=== PATIENT | female | born 1985 | race Caucasian/White ===

== ENCOUNTER 2020-01-03 09:41 | Outpatient (CLI) | payer SELFPAY ==
--- NOTE | 2020-01-03 10:15 | US_ITS ---
WS: [id number] ULTRASOUND ABDOMEN LIMITED CLINICAL INFORMATION: ABDOMINAL PAIN COMPARISON: None. FINDINGS: Technically difficult examination due to body habitus. Liver Size: Normal. Craniocaudal length: 16.0 cm. Echogenicity: Fatty infiltration Surface nodularity: None. Mass (size and location): None. Bile ducts Intrahepatic ducts: Normal. Common bile duct diameter: 0.4 cm. Gallbladder Cholelithiasis and sludge Gallstones: Present Gallbladder sludge: Present Gallbladder wall thickening: None. Pericholecystic fluid: None. Sonographic Lucia sign: Absent. Pancreas Normal as visualized. Right kidney: Normal. Hydronephrosis: None. Size: 11.7 cm x 5.2 cm x 4.4 cm. Abdominal aorta and IVC Visualized portions are normal. Ascites: None. US/US gall bladder 84600 IMPRESSION: 1. Liver is normal in size with mild fatty infiltration. 2. Cholelithiasis with sludge in the gallbladder. Normal common bile duct. No gallbladder wall thickening. 3. No hydronephrosis in right kidney.
== END 2020-01-03 09:42 | disposition home or self-care (01) ==
LOC: RAD 09:44
PROVIDERS: PCP Nurse Practitioner Family; Visit Provider Surgery
DX: R10.9 Unspecified abdominal pain (principal); K80.20 Calculus of gallbladder without cholecystitis without obstruction
CPT/HCPCS: 76705

== ENCOUNTER 2020-03-05 06:47 | Day surgery (SDC) | payer SELFPAY ==
[2020-03-02 15:55] VITALS: BMI 38.6
[2020-03-05] VITALS (9 sets, daily range): BP systolic 124–145; BP diastolic 56–86; PULSE 62–114; RESP 17–26; TEMP 36.2–36.8; O2SAT 90–95; BMI 38.6
[2020-03-05 07:27] LABS: OR HCG Qualitative Urine Negative (Negative)
[2020-03-05] MEDS: sodium chloride 0.9% 1,000 ML 30 ML IV (07:30)
--- NOTE | 2020-03-05 07:45 | P.ANESASSM_ITS ---
Pre-Anesthetic Assessment Pre-Anesthetic Assessment: Height/Weight: Height 1.63 m Weight 102.058 kg Preop Diagnosis: Cholelithiasis Proposed Procedure: Operation Date: 03/05/20 08:25 Proposed Procedures p Laparoscopic Cholecystectomy 92920 K80.20(Not Applicable) - Aiden Boateng MD Familial anesthetic complications: None Was Beta Misbah taken within 24 hours: N/A Last intake: NPO Social: Social History: Tobacco and No alcohol Exam: Pre-Anes Outpt Exam: alert, oriented x 3, clear to auscultation bilaterally and regular rate & rhythm Airway: Cervical ROM: WNL MP: 2 Dentition: Full Metabolic: Metabolic: Morbid obesity Anesthetic Plan: ASA status: 2 Anesthesia: General Risk of > 500 ml blood loss (7ml/kg in children): No PFSH Anesthesia PFSH: Medical History Cholelithiasis FERMIN (generalized anxiety disorder) Surgical History H/O hand surgery right hand History of dilatation and curettage History of tonsillectomy and adenoidectomy Family History Denies family history of Anesthesia complication Bleeding disorder Social History Smoking and tobacco status: current every day smoker cigarettes Packs smoked per day: 0.5 Second hand smoke exposure: No Alcohol intake: never Adopted: No Caregiver/support person: Yes Lives independently: Yes Household members: spouse and family Housing: House Marital status: service: No Current occupational status: disabled Current occupational exposures/hazards: No Pets and animals: No History of recent travel: No Sexually active: Yes Current gender identity: Female Jeannette/Hoahaoism: Restorationism Special jeannette needs: No Data Anesthesia Other Labs: Laboratory Results - last 48 hr 03/05/20 07:22 Urine HCG, Qual Negative Cardiac Studies: No Data to Display
[2020-03-05] MEDS: ciprofloxacin 400 MG/200 ML PREMIX 200 MG IV (09:10)
--- NOTE | 2020-03-05 09:22 | W.PM.OPSUD ---
Surgery/Procedure H&P Update DATE OF PROCEDURE: March 05, 2020 DATE H&P PERFORMED: 02/27/20 H&P UPDATE INFORMATION: I have reviewed H&P completed within last 30 days, I have examined patient prior to procedure and No changes to prior documentation PREOP DIAGNOSIS: Cholelithiasis PLANNED PROCEDURE: Operation Date: 03/05/20 08:25 Proposed Procedures p Laparoscopic Cholecystectomy 42467 K80.20(Not Applicable) - Aiden Boateng MD
--- NOTE | 2020-03-05 10:13 | P.OP_ITS ---
Operative Report Date of procedure: March 05, 2020 Pre-op Diagnosis: Cholelithiasis Post-op diagnosis: same Procedure Done: Laparoscopic cholecystectomy Pathology: Gallbladder Surgeon: Aiden Boateng Anesthesia: General Condition: stable Disposition: PACU Procedure: The patient was taken to the operating room and was intubated under general anesthesia. After the antibiotic had been administered, the abdomen was prepped and draped in a sterile manner. Using a #15 blade, a 1 centimeter infraumbilical curvilinear incision was made and using an open Nick technique the peritoneal cavity was entered. A 10 millimeter port was placed and 15 mi llimeters of pneumoperitoneum was created. A 10 millimeter, 30 degrees scope was then introduced. Three 5 millimeter ports were placed in the epigastric, midclavicular and the anterior axillary line two fingerbreadths below the costal margin on the right side under the direct visualization. Ratcheted forceps were introduced into the lateral most port and was used to retract the fundus of the gallbladder cephalad and using forceps the infundibulum of the gallbladder was retracted laterally. Using L-hook cautery the peritoneum overlying the Calot's triangle was opened medially and laterally until the cystic duct and the cystic artery were skeletonized. Dissection was carried along the body of the gallbladder and after ensuring critical view of safety, 4 clips applied on the cystic duct and 3 clips applied on the cystic artery and cut leaving, 3 clips on the remaining portion of the duct and 2 clips on the remaining portion of the artery. The rest of the gallbladder was dissected off the liver using L-hook cautery. There was no bleeding or bile leaking noted from the gallbladder fossa and the clips appeared to be in place. An EndoCatch bag was introduced to remove the gallbladder. All the ports were removed under direct visualization and there was no bleeding noted from the port sites. The fascia of the umbilicus was closed using [id number] 0 Vicryl sutures and the subcutaneous tissue was approximated using 3-0 Vicryl sutures. The skin at all four ports were closed using 4-0 Monocryl and Dermabond. A total of 10 millimeters of 0.5% Marcaine was infiltrated around the port sites. The patient was stable throughout the procedure.
--- NOTE | 2020-03-05 10:27 | SUR.PHASEI ---
1025 PATIENT TO PACU FROM OR. RR EVEE AND UNLABORED. PLACED ON SIMPLE MASK AT 8L, SPO2 91%. 4 INCISIONS TO ABDOMEN, CDI.
--- NOTE | 2020-03-05 10:29 | SUR.PHASEI ---
1027 ORAL AIRWAY REMOVED. SPO2 92% ON SIMPLE MASK AT 8L.
--- NOTE | 2020-03-05 10:51 | ANE.PACU2 ---
Inpatient post-anesthesia follow up: Airway intact: Yes Vital signs: Temperature 97.2 F Pulse Rate 80 Respiratory Rate 22 Blood Pressure 132/72 Pulse Oximetry 94 Oxygen Delivery Me thod Nasal Cannula Oxygen Flow Rate 3 Fraction of Inspir ed Oxygen Hydration adequate: Yes Nausea and vomiting: No Pain level: 3 Mental status: Baseline
--- NOTE | 2020-03-05 10:54 | SUR.PHASEI ---
1050 PATIENT TO OPS. NO DISTRESS. RATES PAIN 6/10, RESTING COMFORTABLY ON GURNEY. TOLERATING ICE CHIPS.
[2020-03-05] MEDS: HYDROcodone-acetaminophen 5-325 mg Tablet 1 TAB PO (11:14)
== END 2020-03-05 12:06 | disposition home or self-care (01) ==
PROVIDERS: Anesthesiology; PCP Nurse Practitioner Family; Visit Provider Surgery
PROC: 0FT44ZZ Resection of Gallbladder, Percutaneous Endoscopic Approach (ICD-10-PCS; CPT 47562; principal; 2020-03-05 08:25)
DX: K80.10 Calculus of gallbladder with chronic cholecystitis without obstruction (principal); E66.01 Morbid (severe) obesity due to excess calories; F41.1 Generalized anxiety disorder; F17.210 Nicotine dependence, cigarettes, uncomplicated
CPT/HCPCS: 47562; 12345; 81025; 84703; 88304; 96365; J0131; J0690; J0744; J1885; J2405; J2704; J2710; J3010; J3490; J7030

== ENCOUNTER → 2020-11-21 10:43 | Outpatient (BNVA) | payer SELFPAY | PROVIDERS: PCP Nurse Practitioner Family; Visit Provider Nurse Practitioner Family | DX: J30.89 Other allergic rhinitis (principal); Z79.899 Other long term (current) drug therapy; L74.9 Eccrine sweat disorder, unspecified; Z13.6 Encounter for screening for cardiovascular disorders; N95.1 Menopausal and female climacteric states; E55.9 Vitamin D deficiency, unspecified | CPT/HCPCS: 80053; 80061; 82306; 82670; 83001; 83036; 84439; 84443; 84550; 85007; 85027 ==

== ENCOUNTER → 2020-12-11 09:14 | Outpatient (BNVA) | payer SELFPAY | PROVIDERS: PCP Nurse Practitioner Family; Visit Provider Nurse Practitioner Family | DX: D64.9 Anemia, unspecified (principal); R09.81 Nasal congestion | CPT/HCPCS: 82607; 82728; 82746; 83550 ==

== ENCOUNTER → 2020-12-13 14:02 | Outpatient (BNVA) | payer SELFPAY | PROVIDERS: PCP Nurse Practitioner Family; Visit Provider Nurse Practitioner Family | DX: D64.9 Anemia, unspecified (principal); F41.9 Anxiety disorder, unspecified; F32.9 Major depressive disorder, single episode, unspecified | CPT/HCPCS: 83921 ==

== ENCOUNTER → 2021-05-22 10:55 | Outpatient (BNVA) | payer SELFPAY | PROVIDERS: PCP Nurse Practitioner Family; Visit Provider Nurse Practitioner Family | DX: R05.8 Other specified cough (principal); R39.9 Unspecified symptoms and signs involving the genitourinary system | CPT/HCPCS: 81003 ==

== ENCOUNTER 2021-06-03 13:25 | Outpatient (CLI) | payer MEDICAID, SELFPAY ==
--- NOTE | 2021-06-03 13:30 | XRR_ITS ---
PROCEDURE INFORMATION: Exam: XR Right Ribs Exam date and time: 06/03/2021 1:30 PM Age: 35 years old Clinical indication: Condition or disease; Other: Pleurodynia; Additional info: R07.81 - pleurodynia TECHNIQUE: Imaging protocol: XR Right ribs. Views: 2 views. COMPARISON: CR Chest 2 views* [id number] 04/13/2016 1:38 AM FINDINGS: Bones/joints: Normal. Organs: Cholecystectomy clips project over the right upper quadrant. Soft tissues: Normal. XR/XR ribs RT 2V* [id number] IMPRESSION: No acute injury. Radiation Dose CTDIVOL = (mGy): DLP = (mGy-cm)
== END 2021-06-03 13:26 | disposition home or self-care (01) ==
LOC: RAD 13:28
PROVIDERS: PCP Nurse Practitioner Family; Visit Provider Family Medicine
DX: R07.81 Pleurodynia (principal)
CPT/HCPCS: 71100

== ENCOUNTER 2021-09-05 14:59 | Outpatient (CLI) | payer MEDICAID, SELFPAY ==
--- NOTE | 2021-09-05 15:09 | XR_ITS ---
WS: [id number] Right knee, 3 views, 09/05/2021 Clinical Data: M25.569 - Pain in unspecified knee Comparison: None. Findings: No fractures or dislocations are seen. The joint spaces are normal. The patella is intact. The soft t issues are unremarkable. XR/XR knee RT 3V* [id number] Impression: Negative right knee. Kellgren-Coleman Classification:
== END 2021-09-05 15:00 | disposition home or self-care (01) ==
LOC: RAD 15:03
PROVIDERS: PCP Family Medicine; Visit Provider Family Medicine
DX: M25.561 Pain in right knee (principal)
CPT/HCPCS: 73562

== ENCOUNTER → 2021-09-18 14:18 | Outpatient (BNVA) | payer MEDICAID, SELFPAY | PROVIDERS: PCP Family Medicine; Visit Provider Family Medicine | DX: R35.0 Frequency of micturition (principal) | CPT/HCPCS: 81000 ==

== ENCOUNTER → 2021-09-24 14:23 | Outpatient (BNVA) | payer MEDICAID, SELFPAY | PROVIDERS: PCP Family Medicine; Visit Provider Nurse Practitioner Family | DX: N32.81 Overactive bladder (principal); J01.90 Acute sinusitis, unspecified; B96.89 Other specified bacterial agents as the cause of diseases classified elsewhere; I10 Essential (primary) hypertension; D64.9 Anemia, unspecified; E55.9 Vitamin D deficiency, unspecified; Z13.6 Encounter for screening for cardiovascular disorders; Z79.899 Other long term (current) drug therapy | CPT/HCPCS: 80053; 80061; 81003; 82306; 82728; 83036; 83550; 84443; 85025 ==

== ENCOUNTER → 2022-01-15 10:04 | Outpatient (BNVA) | payer MEDICAID, SELFPAY | PROVIDERS: PCP Family Medicine; Referring Provider Nurse Practitioner; Visit Provider Orthopaedic Surgery | DX: M25.561 Pain in right knee (principal) | CPT/HCPCS: 99203 ==

== ENCOUNTER → 2022-01-29 14:15 | Outpatient (BNVA) | payer MEDICAID, SELFPAY | PROVIDERS: PCP Family Medicine; Visit Provider Nurse Practitioner | DX: D22.9 Melanocytic nevi, unspecified (principal); H16.139 Photokeratitis, unspecified eye | CPT/HCPCS: 88304 ==

== ENCOUNTER → 2022-03-03 14:19 | Outpatient (BNVA) | payer MEDICAID, SELFPAY | PROVIDERS: PCP Family Medicine; Visit Provider Nurse Practitioner | DX: R52 Pain, unspecified (principal); U07.1 COVID-19 | CPT/HCPCS: 87426 ==

== ENCOUNTER 2022-04-17 07:36 | Day surgery (SDC) | payer MEDICAID, SELFPAY ==
[2022-04-16 12:23] VITALS: BMI 56.6
[2022-04-17 08:22] VITALS: BP 164/98; PULSE 64; RESP 18; TEMP 36.6; O2SAT 94
[2022-04-17] MEDS: sodium chloride 0.9% 1,000 ML 30 ML IV (08:34)
--- NOTE | 2022-04-17 09:02 | P.ANESASSM_ITS ---
Pre-Anesthetic Assessment Height/Weight: Height 1.63 m Weight 149.685 kg Temp Pulse Resp BP Pulse Ox O2 Del Method 97.8 F 64 18 164/98 94 04/17/22 08:22 04/17/22 08:22 04/17/22 08:22 04/17/22 08:22 04/17/22 08:22 04/17/22 08:22 Preop Diagnosis: Carpal tunnel syndrome left Operation Date: 04/17/22 09:40 Proposed Procedures p Carpal Tunnel Release Of Left Hand [id number](Left) - Demarcus Scott MD Familial anesthetic complications: None Was Beta Misbah taken within 24 hours: N/A Was Clonidine taken within 24 hours: N/A Last intake: > 8hrs Social Tobacco and No alcohol Exam alert, oriented x 3, clear to auscultation bilaterally and regular rate & rhythm Airway Mallampati: Class IV Dentition: full Pulmonary None reported CV/HEM Hypertension GI Gastroesophageal Reflux Disease Metabolic Morbid Obesity Anesthetic Plan ASA status: 3 Anesthesia: General Risk of > 500 ml blood loss (7ml/kg in children): No Medications/Allergies Home Medications Medication Instructions Recorded Confirmed Last Taken Type ondansetron HCl 4 mg tablet 4 mg PO Q8H PRN nausea and 07/15/21 04/16/22 Unknown Rx (Zofran) vomiting 5 days #15 tabs gabapentin 300 mg capsule 300 mg PO .nightly 90 days #90 caps 12/16/21 04/17/22 04/16/22 Rx cetirizine 10 mg capsule (Zyrtec) 10 mg PO DAILY PRN allergy 03/05/22 04/17/22 04/16/22 Rx symptoms 90 days #90 caps cholecalciferol (vitamin D3) 25 25 mcg PO DAILY #30 caps 03/05/22 04/17/22 04/16/22 Rx mcg (1,000 unit) capsule duloxetine 60 mg capsule,delayed 60 mg PO DAILY 90 days #90 caps 03/05/22 04/17/22 04/16/22 Rx release meloxicam 15 mg tablet 15 mg PO DAILY 90 days #90 tabs 03/05/22 04/17/22 04/16/22 Rx mirabegron 25 mg tablet,extended 25 mg PO DAILY 30 days #30 tabs 03/05/22 04/17/22 04/16/22 Rx release 24 hr (Myrbetriq) omeprazole 40 mg capsule,delayed 40 mg PO DAILY #30 caps 04/04/22 04/17/22 04/16/22 Rx release + Iron 1 tab PO DAILY 04/16/22 04/17/22 04/16/22 History fluticasone propionate 50 2 spray intranasal DAILY PRN 04/16/22 04/16/22 Unknown History mcg/actuation nasal Allergy Symptoms spray,suspension losartan 25 mg tablet 25 mg PO DAILY 04/16/22 04/17/22 04/16/22 History montelukast 10 mg tablet 10 mg PO DAILY 04/16/22 04/17/22 04/16/22 History nystatin 100,000 unit/gram topical 1 applic topical BID #30 grams 04/16/22 Unknown Rx cream triamcinolone acetonide 0.1 % 1 applic topical BID 04/16/22 04/16/22 Unknown History topical cream (Triderm) Allergies Allergy/AdvReac Type Severity Reaction Status Date / Time doxycycline Allergy Severe ADR-Headach Verified 04/16/22 12:18 e escitalopram [From Lexapro] Allergy Severe ADR-Fatigue Verified 04/16/22 12:18 d guaifenesin [From Mucinex D] Allergy Severe ADR-Headach Verified 04/16/22 12:18 e loratadine [From Claritin-D] Allergy Severe ALGY-Bliste Verified 04/16/22 12:18 r Penicillins Allergy Severe ALGY-Hives Verified 04/16/22 12:18 pseudoephedrine Allergy Severe ALGY-Bliste Verified 04/16/22 12:18 [From Claritin-D] r Sulfa (Sulfonamide Allergy Severe ALGY-Hives Verified 04/16/22 12:18 Antibiotics) lisinopril Allergy Intermediate cough Verified 04/16/22 12:18 oxybutynin AdvReac heart Verified 04/16/22 12:18 palapations topiramate [From Topamax] AdvReac high bp Verified 04/16/22 12:18 Current Medications Generic Name Dose Route Start Last Admin Trade Name Freq PRN Reason Stop Dose Admin Sodium Chloride 1,000 mls @ 30 mls/hr 04/17/22 08:30 04/17/22 08:34 Sodium Chloride 0.9% IV 04/18/22 08:29 30 mls/hr .Q24H MACIEJ Administration PFSH Anesthesia Medical History Acute bacterial sinusitis Acute bacterial sinusitis Acute otitis media, bilateral Anemia Anxiety and depression Bilateral otitis externa Bilateral otitis media Cholelithiasis Chronic sinusitis Cough Elevated blood pressure reading Environmental and seasonal allergies Essential hypertension FERMIN (generalized anxiety disorder) Hypertension screen Medication management Medication management Menopausal symptom Migraine headache Nasal congestion Nausea Overactive bladder Pharyngitis Sinus congestion Sweating abnormality Vitamin D deficiency Yeast dermatitis Surgical History H/O hand surgery right hand History of dilatation and curettage History of tonsillectomy and adenoidectomy Status post laparoscopic cholecystectomy (03/05/20) Family History Denies family history of Anesthesia complication Bleeding disorder Social History Smoking and tobacco status: never smoked Second hand smoke exposure: No Alcohol intake: never Adopted: No Caregiver/support person: Yes Lives independently: Yes Household members: spouse and family Housing: House Marital status: service: No Current occupational status: disabled Current occupational exposures/hazards: No Pets and animals: No History of recent travel: No Sexually active: Yes Current gender identity: Female Jeannette/Taoism: Rastafarian Special jeannette needs: No Data Anesthesia Cardiac Studies: No Data to Display
[2022-04-17 09:12] LABS: OR HCG Qualitative Urine Negative (Negative)
--- NOTE | 2022-04-17 10:00 | W.PM.OPSUD ---
Surgery/Procedure H&P Update DATE OF PROCEDURE: April 17, 2022 DATE H&P PERFORMED: 04/11/22 H&P UPDATE INFORMATION: I have reviewed H&P completed within last 30 days PREOP DIAGNOSIS: Carpal tunnel syndrome left PLANNED PROCEDURE: Operation Date: 04/17/22 09:40 Proposed Procedures p Carpal Tunnel Release Of Left Hand [id number](Left) - Demarcus Scott MD
[2022-04-17] MEDS: ceFAZolin 2,000 MG in sodium chloride 0.9% (plus) 50 ML 100 MG IV (10:11)
--- NOTE | 2022-04-17 10:46 | P.OP_ITS ---
Operative Report Date of procedure: April 17, 2022 Pre-op diagnosis: Preop Diagnosis Carpal tunnel syndrome left Post-op diagnosis: same Post-op diagnosis: Same Procedure done: Left carpal tunnel release Pathology: none sent Surgeon: Demarcus Scott Anesthesia: MAC Estimated blood loss (mL): 2 Tourniquet time (min): 5 Findings: No masses or space-occupying lesions were seen within the carpal tunnel Condition: stable Disposition: PACU Procedure: Patient was taken to the operating room and anesthesia provided by the anesthesia service. She was prepped and draped with the arm exposed. A timeout was performed. A 3 cm long incision was made in line with the fourth ray from the distal edge of the carpal tunnel extending proximally. The subcutaneous fat and palmar fascia was divided with a scalpel blade. Under loupe magnification the ulnar neurovascular bundle was identified distally. A hemostat could be passed under the transverse carpal ligament allowing the distal 25% to be divided. A slotted guide was then passed beneath the transverse carpal ligament and the middle 50% divided. Blunt scissors were then passed over the guide freeing the proximal ligament. The tourniquet was deflated. Hemostasis provided with electrocautery. Wound edges were infiltrated with 10 cc of a half percent Marcaine solution. Skin edges were reapproximated with 3-0 Prolene[address] S terile dressings were applied. The patient was taken to the recovery room in stable condition
[2022-04-17 10:49] VITALS: BP 142/86; PULSE 86; RESP 12; TEMP 36.4; O2SAT 96
[2022-04-17 10:55] VITALS: BP 164/74; PULSE 69; RESP 14; O2SAT 95
[2022-04-17 11:02] VITALS: BP 161/79; PULSE 64; RESP 14; TEMP 36.5; O2SAT 94
[2022-04-17 11:07] VITALS: BP 138/79; PULSE 64; RESP 16; TEMP 36.6; O2SAT 95
--- NOTE | 2022-04-17 11:12 | SUR.PHASEII ---
good ROM and sensation of fingers left hand.
[2022-04-17 11:55] VITALS: BP 143/69; PULSE 72; RESP 16; TEMP 36.6; O2SAT 97
[2022-04-17] MEDS: HYDROcodone-acetaminophen 5-325 mg Tablet 1 TAB PO (11:57)
--- NOTE | 2022-04-17 14:06 | ANE.PACU2 ---
Inpatient post-anesthesia follow up: Airway intact: Yes Vital signs: Temperature 97.9 F Pulse Rate 72 Respiratory Rate 16 Blood Pressure 143/69 Pulse Oximetry 97 Oxygen Delivery Me thod Room Air Oxygen Flow Rate Fraction of Inspir ed Oxygen Hydration adequate: Yes Nausea and vomiting: No Pain level: 1 Mental status: Baseline
== END 2022-04-17 12:05 | disposition home or self-care (01) ==
PROVIDERS: Anesthesiology; PCP Family Medicine; Visit Provider Orthopaedic Surgery
PROC: (CPT 64721; principal; 2022-04-17 09:30)
DX: G56.02 Carpal tunnel syndrome, left upper limb (principal); I10 Essential (primary) hypertension; K21.9 Gastro-esophageal reflux disease without esophagitis; E66.01 Morbid (severe) obesity due to excess calories; Z68.43 Body mass index [BMI] 50.0-59.9, adult
CPT/HCPCS: 64721; 81025; 84703; J2250; J2704; J3010; J3490; J7030

== ENCOUNTER 2022-04-22 10:43 | Outpatient (CLI) | payer MEDICAID, SELFPAY | END 2022-04-22 10:44 | disposition home or self-care (01) | LOC: SPT 10:44 | PROVIDERS: PCP Family Medicine; Visit Provider Nurse Practitioner Family | DX: Z46.89 Encounter for fitting and adjustment of other specified devices (principal); G56.02 Carpal tunnel syndrome, left upper limb; Z98.890 Other specified postprocedural states | CPT/HCPCS: 97760; L3908 ==

== ENCOUNTER → 2022-05-06 10:35 | Outpatient (BNVA) | payer MEDICAID, SELFPAY | PROVIDERS: PCP Family Medicine; Visit Provider Nurse Practitioner Family | DX: M25.561 Pain in right knee (principal); G89.29 Other chronic pain; E66.9 Obesity, unspecified; Z68.44 Body mass index [BMI] 60.0-69.9, adult | CPT/HCPCS: 73560; 73565 ==

== ENCOUNTER → 2022-05-14 08:37 | Outpatient (BNVA) | payer MEDICAID, SELFPAY | PROVIDERS: PCP Family Medicine; Visit Provider Nurse Practitioner | DX: R23.2 Flushing (principal); T50.905A Adverse effect of unspecified drugs, medicaments and biological substances, initial encounter | CPT/HCPCS: 82672; 83001; 84443 ==

== ENCOUNTER 2022-08-20 14:27 | Outpatient (CLI) | payer MEDICAID, SELFPAY ==
--- NOTE | 2022-08-20 14:30 | MR_ITS ---
WS: [id number] MRI RIGHT KNEE NONCONTRAST TECHNIQUE: Axial PD, coronal PD fat sat, coronal PD, sagittal PD, and sagittal PD fat-sat images obta ined. CLINICAL INFORMATION: pain COMPARISON: MRI 2009 FINDINGS: Distal quadriceps and patella tendons are intact. ACL and PCL appear intact. Mucoid degeneration of t he ACL. Small suprapatellar effusion. Moderate chondromalacia patella with chondral fissuring. No sub chondral edema. Normal medial and lateral patellar retinaculum. Small amount of prepatellar soft tiss ue edema. Medial and lateral collateral ligaments are intact. Normal popliteus. Advanced joint space narrowing lateral joint compartment advanced for patient this age. Peripheral ex trusion of the lateral meniscus. Horizontal tear involving the lateral meniscus extending to the jessica pheral articular surface is new or progressed compared to previous. Associated meniscal cysts at the periphery. Additional small meniscal cysts at the intercondylar notch. Peripheral extrusion of the la teral meniscus. MR/MR knee RT wo con* [id number] IMPRESSION: 1. ACL and PCL are intact. Mucoid degeneration of the ACL appears new from pre vious. 2. Tear involving the anterior horn lateral meniscus extending to the articula r surface at the periphery. Associated para meniscal cysts. Chronic thinning of the lateral meniscus. This is progressed compared to previous. Thinning of the medial meniscus which appears intact. 3. Grade II chondromalacia involving the lateral joint compartment. No subchon dral edema. 4. Moderate chondromalacia patella with chondral fissuring. Small joint effusi on. Outbridge grading: grade III: partial-thickness cartilage loss with focal ulcer ation
== END 2022-08-20 14:28 | disposition home or self-care (01) ==
PROVIDERS: PCP Family Medicine; Visit Provider Nurse Practitioner Family
DX: M22.41 Chondromalacia patellae, right knee (principal); M25.461 Effusion, right knee
CPT/HCPCS: 73721

== ENCOUNTER 2022-09-25 08:55 | Day surgery (SDC) | payer MEDICAID, SELFPAY ==
[2022-09-16 14:38] VITALS: BMI 55.3
--- NOTE | 2022-09-24 09:48 | PC.NURSE ---
pre-op was done last week, surgery rescheduled due to pt still taking phentermine. No chages on patients medications or history. pt verbalized understanding of pre-op instructions and has no further questions.
[2022-09-25] VITALS (8 sets, daily range): BP systolic 112–167; BP diastolic 72–110; PULSE 78–110; RESP 13–18; TEMP 36.1–36.2; O2SAT 91–96
[2022-09-25] MEDS: sodium chloride 0.9% 1,000 ML 30 ML IV (09:23)
--- NOTE | 2022-09-25 09:24 | ANES.PREANE2 ---
Pre-Anesthetic Assessment Height/Weight: Height 1.63 m Weight 146.057 kg Temp Pulse Resp BP Pulse Ox O2 Del Method 97.2 F L 78 16 163/85 95 09/25/22 09:10 09/25/22 09:10 09/25/22 09:10 09/25/22 09:10 09/25/22 09:10 09/25/22 09:18 Preop Diagnosis: Right lateral meniscal tear, chondromalacia knee Operation Date: 09/25/22 10:25 Proposed Procedures p right knee arthroscopy with lateral meniscectomy/ 39984,S83.207A(Right) - Demarcus Scott MD s Meniscectomy(Right) - Demarcus Scott MD Familial anesthetic complications: none Was Beta Misbah taken within 24 hours: N/A Was Clonidine taken within 24 hours: N/A Last intake: Intake Last Liquid Date 09/24/22 Last Liquid Time 23:30 Last Solid Date 09/24/22 Last Solid Time 20:00 Last Intake: 23:00 Social No alcohol and No tobacco Exam alert, oriented x 3, clear to auscultation bilaterally and regular rate & rhythm Airway Submandibular: within normal limits Cervical ROM: within normal limits Mallampati: Class II Dentition: full (decayed front upper) Pulmonary None reported CV/HEM Hypertension None reported Hepatic None reported GI Gastroesophageal Reflux Disease (controlled with meds) Metabolic Morbid Obesity [facility] [place] None reported Neuropsych Headache (2 years ago was last) Anesthetic Plan ASA status: 3 Anesthesia: Anesthesia Evaluation and General Risk of > 500 ml blood loss (7ml/kg in children): No Medications/Allergies Home Medications Medication Instructions Recorded Confirmed Last Taken Type cholecalciferol (vitamin D3) 25 25 mcg PO DAILY #30 caps 03/05/22 09/25/22 09/24/22 Rx mcg (1,000 unit) capsule + Iron 1 tab PO DAILY 04/16/22 09/25/22 09/24/22 History cetirizine 10 mg capsule (Zyrtec) 10 mg PO DAILY PRN allergy 08/21/22 09/25/22 09/24/22 Rx symptoms 90 days #90 caps cyclobenzaprine 10 mg tablet 10 mg PO BID PRN muscle spasm 30 08/21/22 09/25/22 6 Months Ago Rx days #60 tabs ~03/19/22 duloxetine 60 mg capsule,delayed 60 mg PO DAILY 90 days #90 caps 08/21/22 09/25/22 09/24/22 Rx release fluticasone propionate 50 2 spray intranasal DAILY PRN 08/21/22 09/25/22 3 Weeks Ago Rx mcg/actuation nasal Allergy Symptoms #16 grams ~08/26/22 spray,suspension losartan 25 mg tablet 25 mg PO DAILY 90 days #90 tabs 08/21/22 09/25/22 09/23/22 Rx mirabegron 25 mg tablet,extended See Rx Instructions .Route 08/21/22 09/25/22 09/24/22 Rx release 24 hr (Myrbetriq) .COMPLEX 90 days #90 tabs montelukast 10 mg tablet 10 mg PO DAILY 90 days #90 tabs 08/21/22 09/25/22 09/24/22 Rx omeprazole 40 mg capsule,delayed 40 mg PO DAILY 90 days #90 caps 08/21/22 09/25/22 09/24/22 Rx release naproxen 500 mg tablet 500 mg PO BID PRN pain 30 days #30 09/09/22 09/25/22 09/23/22 Rx tabs phentermine 37.5 mg capsule 37.5 mg PO DAILY 30 days #30 caps 09/17/22 09/25/22 09/18/22 Rx Allergies Allergy/AdvReac Type Severity Reaction Status Date / Time doxycycline Allergy Severe ADR-Headach Verified 09/25/22 09:06 e escitalopram [From Lexapro] Allergy Severe ADR-Fatigue Verified 09/25/22 09:06 d guaifenesin [From Mucinex D] Allergy Severe ADR-Headach Verified 09/25/22 09:06 e loratadine [From Claritin-D] Allergy Severe ALGY-Bliste Verified 09/25/22 09:06 r Penicillins Allergy Severe ALGY-Hives Verified 09/25/22 09:06 pseudoephedrine Allergy Severe ALGY-Bliste Verified 09/25/22 09:06 [From Claritin-D] r Sulfa (Sulfonamide Allergy Severe ALGY-Hives Verified 09/25/22 09:06 Antibiotics) lisinopril Allergy Intermediate cough Verified 09/25/22 09:06 oxybutynin AdvReac heart Verified 09/25/22 09:06 palapations topiramate [From Topamax] AdvReac high bp Verified 09/25/22 09:06 [facility] Anesthesia Medical History Acute bacterial sinusitis Acute bacterial sinusitis Acute otitis media, bilateral Anemia Anxiety and depression Bilateral otitis externa Bilateral otitis media Cholelithiasis Chronic sinusitis Cough Elevated blood pressure reading Environmental and seasonal allergies Essential hypertension FERMIN (generalized anxiety disorder) Hypertension screen Medication management Medication management Menopausal symptom Migraine headache Nasal congestion Nausea Overactive bladder Pharyngitis Sinus congestion Sweating abnormality Vitamin D deficiency Yeast dermatitis Surgical History H/O hand surgery right hand History of dilatation and curettage History of tonsillectomy and adenoidectomy Status post laparoscopic cholecystectomy (03/05/20) Family History Denies family history of Anesthesia complication Bleeding disorder Social History Smoking and tobacco status: never smoked Second hand smoke exposure: No Alcohol intake: never Adopted: No Caregiver/support person: Yes Lives independently: Yes Household members: spouse and family Housing: House Marital status: service: No Current occupational status: disabled Current occupational exposures/hazards: No Pets and animals: No Sexually active: Yes Current gender identity: Female Jeannette/Lutheran: Confucianist Special jeannette needs: No Data Anesthesia Cardiac Studies: No Data to Display
[2022-09-25] MEDS: acetaminophen 500 mg Tablet 1000 MG PO (09:26)
[2022-09-25] MEDS: CELEcoxib 200 mg Capsule 400 MG PO (09:26)
--- NOTE | 2022-09-25 09:26 | W.PM.OPSUD ---
Surgery/Procedure H&P Update DATE OF PROCEDURE: September 25, 2022 DATE H&P PERFORMED: 09/01/22 H&P UPDATE INFORMATION: I have reviewed H&P completed within last 30 days PREOP DIAGNOSIS: Right lateral meniscal tear, chondromalacia knee PLANNED PROCEDURE: Operation Date: 09/25/22 10:25 Proposed Procedures p right knee arthroscopy with lateral meniscectomy/ 87398,S83.207A(Right) - Demarcus Scott MD s Meniscectomy(Right) - Demarcus Scott MD
[2022-09-25 09:33] LABS: OR HCG Qualitative Urine Negative (Negative)
[2022-09-25] MEDS: ceFAZolin 2,000 MG in sodium chloride 0.9% (plus) 50 ML 100 MG IV (09:46)
[2022-09-25] MEDS: ceFAZolin 1,000 MG in sodium chloride 0.9% (plus) 50 ML 100 MG IV (10:27)
[2022-09-25] MEDS: morphine 4 mg/mL SDV 1 mL 8 MG XX (10:28)
--- NOTE | 2022-09-25 11:29 | PM.OP ---
Operative Report Date of procedure: September 25, 2022 Pre-op diagnosis: Preop Diagnosis Right lateral meniscal tear, chondromalacia knee Post-op diagnosis: Right lateral meniscal posterior root repair, chondromalacia patella Procedure done: Arthroscopic right lateral meniscal root repair, chondroplasty right patella Implants: [employer]hew Endobutton Pathology: none sent Surgeon: Demarcus Scott Anesthesia: General Estimated blood loss (mL): 10 Tourniquet time (min): 57 Condition: stable Disposition: PACU Brief History: 36-year-old with chronic left knee pain. She is failed to respond to conservative measures including home exercises anti-inflammatories. An MRI was obtained suggesting lateral meniscal tearing. He was taken to the operating room for diagnostic arthroscopy and to address the lateral meniscus and improve pain and function Procedure: The patient was taken to the operating room and given 3 g of Ancef. She was given a general anesthesia. She is prepped and draped in the supine position with a tourniquet on the right thigh. The knee was infiltrated with 30 cc of 0.5% Marcaine and 8 mg of morphine. She was prepped and draped in the usual fashion. A timeout was performed. The knee was entered through a standard inferior medial and inferior lateral portal. The diagnostic portion of the arthroscopy was performed chondromalacia was identified beneath the patella as noted above. Her medial compartment was inspected and found to be pristine. Her lateral compartment is inspected where she was found to have detachment of her posterior lateral meniscal root from the tibia with the meniscus only held in place by meniscal femoral ligaments. There is minimal chondromalacia identified in the lateral compartment. The patient was thought to be a reasonable candidate for meniscal repair to minimize future risk of degenerative change. A tourniquet was inflated to 400 mmHg due to the size of her leg. The leg was placed in a [id number] position visualizing the meniscus through the lateral portal. The meniscus was grasped and found to be mobile enough to would advance the remaining meniscus just lateral to its normal attachment. A curette was passed through the medial portal and used to debride the footprint for for future lateral meniscal root attachment. A 3 cm long incision was made over the medial tibia and dissection carried down to the medial tibia. The Rogers [employer] Nephew root repair guide was used to pass the guidepin into the center of this debrided footprint. Over this was passed a 4.5 mm reamer. Next a [employer]hew FirstPass mini was used to passed to ultra braid sutures across the lateral meniscal root and a luggage tag fashion. A loop Prolene suture was then passed through the 4.5 mm reamer exiting into the knee joint. This loop was retrieved through the medial portal. The suture ends from both sutures were then passed through this loop and this loop was used to shuttle the sutures across the tibia exiting the medial tibia incision. 1 end of the suture was passed through the central holes in the Endobutton. They were firmly secured visualizing the meniscal root, ensuring that it was brought with sufficient tension down into the debrided footprint. Attention was then focused on the underside of the patella. Utilizing incisor shaver and [employer]hew Werewolf unstable flaps and fissures about the central patellar debrided back. At no point was exposed subchondral bone identified. The knee was irrigated with saline. Portals were closed with 3-0 Prolene. The medial tibial incision was closed with deep 2-0 Vicryl and interrupted 3-0 Prolene. Medial tibial incision was covered with Xeroflo gauze. The patient was placed in a hinged knee brace locked in extension and taken to recovery room in stable condition with
[2022-09-25] MEDS: HYDROcodone-acetaminophen 5-325 mg Tablet 1 TAB PO (12:06)
--- NOTE | 2022-09-25 14:44 | ANE.PACU2 ---
Inpatient post-anesthesia follow up: Airway intact: Yes Vital signs: Temperature 97.2 F Pulse Rate 80 Respiratory Rate 18 Blood Pressure 132/78 Pulse Oximetry 94 Oxygen Delivery Me thod Room Air Oxygen Flow Rate 6 Fraction of Inspir ed Oxygen Hydration adequate: Yes Nausea and vomiting: No Pain level: 1 Mental status: Baseline
== END 2022-09-25 12:30 | disposition home or self-care (01) ==
PROVIDERS: Anesthesiology; PCP Family Medicine; Visit Provider Orthopaedic Surgery
PROC: (CPT 29870; principal; 2022-09-25 10:15)
PROC: (CPT 29882; 2022-09-25 10:15)
DX: S83.281A Other tear of lateral meniscus, current injury, right knee, initial encounter (principal); X58.XXXA Exposure to other specified factors, initial encounter; M22.41 Chondromalacia patellae, right knee
CPT/HCPCS: 29882; 36415; 81025; 84703; J0330; J0690; J1100; J1170; J1885; J2250; J2270; J2405; J2704; J3010; J3490; J7030; L1812

== ENCOUNTER → 2023-01-14 15:44 | Outpatient (BNVA) | payer MEDICAID, SELFPAY | PROVIDERS: PCP Family Medicine; Visit Provider Nurse Practitioner Family | DX: S60.00XA Contusion of unspecified finger without damage to nail, initial encounter (principal); X58.XXXA Exposure to other specified factors, initial encounter | CPT/HCPCS: 73140 ==

== ENCOUNTER → 2023-08-13 15:09 | Outpatient (BNVA) | payer MEDICAID, SELFPAY | PROVIDERS: PCP Nurse Practitioner Family; Visit Provider Nurse Practitioner Family | DX: R68.89 Other general symptoms and signs (principal) | CPT/HCPCS: 87400 ==

== ENCOUNTER → 2023-09-24 11:03 | Outpatient (BNVA) | payer MEDICAID, SELFPAY | PROVIDERS: PCP Nurse Practitioner Family; Visit Provider Physician Assistant | DX: M17.11 Unilateral primary osteoarthritis, right knee (principal) | CPT/HCPCS: 73560; 73565 ==

== ENCOUNTER → 2023-10-07 11:02 | Outpatient (BNVA) | payer MEDICAID, SELFPAY | PROVIDERS: PCP Nurse Practitioner Family; Visit Provider Nurse Practitioner Family | DX: F41.9 Anxiety disorder, unspecified (principal); F32.9 Major depressive disorder, single episode, unspecified; I10 Essential (primary) hypertension; G43.909 Migraine, unspecified, not intractable, without status migrainosus; Z79.899 Other long term (current) drug therapy; Z13.6 Encounter for screening for cardiovascular disorders; E55.9 Vitamin D deficiency, unspecified | CPT/HCPCS: 80053; 80061; 81003; 82306; 83036; 83735; 84439; 84443; 85025 ==

== ENCOUNTER → 2024-03-03 15:41 | Outpatient (BNVA) | payer MEDICAID, SELFPAY | PROVIDERS: PCP Nurse Practitioner Family; Visit Provider Nurse Practitioner Family | DX: I10 Essential (primary) hypertension (principal); E55.9 Vitamin D deficiency, unspecified; D64.9 Anemia, unspecified; N32.81 Overactive bladder | CPT/HCPCS: 82670; 83001; 83002; 84305; 84439; 84443 ==

== ENCOUNTER → 2024-05-12 10:05 | Outpatient (BNVA) | payer MEDICAID, SELFPAY | PROVIDERS: PCP Nurse Practitioner Family; Visit Provider Physician Assistant | DX: M25.561 Pain in right knee (principal); G89.29 Other chronic pain; M17.11 Unilateral primary osteoarthritis, right knee; M23.303 Other meniscus derangements, unspecified medial meniscus, right knee | CPT/HCPCS: 73560; 73565 ==

== ENCOUNTER → 2024-07-04 16:54 | Outpatient (BNVA) | payer MEDICAID, SELFPAY | PROVIDERS: PCP Nurse Practitioner Family; Visit Provider Nurse Practitioner Family | DX: I10 Essential (primary) hypertension (principal); J02.9 Acute pharyngitis, unspecified; R51.9 Headache, unspecified | CPT/HCPCS: 87071; 87400; 87426; 87880 ==

== ENCOUNTER 2024-09-30 15:00 | Outpatient (CLI) | payer MEDICAID, SELFPAY ==
--- NOTE | 2024-09-30 15:15 | MR_ITS ---
WS: [id number] MRI RIGHT KNEE HISTORY: Derangement of right knee, prior medial meniscal repair. COMPARISON: 08/20/2022 Anterior cruciate ligament: Prior ACL repair. Posterior cruciate ligament: Intact. Medial collateral ligament: Intact. Posterior lateral corner structures: Intact. Medial menisci: Intrasubstance degeneration in the posterior horn. No tear. Lateral meniscus: Horizontal tear in the anterior horn of the lateral meniscus. Tear extends to the superior articular surface. There is additional abnormal signal involving the free edge in the central posterior horn. Some of these changes may be related to a prior meniscal repair but there is progression of abnormal signal and findings consistent with an additional tear extending to the superior and inferior articular surfaces. Extensor mechanism: Distal quadriceps tendon and patellar tendons are intact. Fluid and soft tissue: Small suprapatellar joint effusion. No Ward's cyst. Osseous and articular structures: Patellofemoral compartment: Focal chondromalacia at the patellar eminence. Tiny amount of marrow edema along the patellar eminence. Medial compartment: Mild narrowing of the medial compartment. Mild chondromalacia. No marrow edema. Lateral compartment: Moderate narrowing of the lateral compartment with moderate diffuse chondromalacia. Small amount of subchondral edema along the tibial plateau. MR/MR knee RT wo con* [id number] IMPRESSION: 1. Prior ACL repair appears intact. 2. New horizontal tear anterior horn of the lateral meniscus extending to the superior articular surface. 3. Additional signal abnormality in the posterior horn of the lateral meniscus extends to both the superior and inferior articular surface consistent with an additional tear. 4. Focal chondromalacia at the patellar eminence with minimal associated marro w edema in the patella. 5. Moderate narrowing of the lateral compartment with moderate diffuse chondro malacia.
== END 2024-09-30 15:01 | disposition home or self-care (01) ==
PROVIDERS: PCP Nurse Practitioner Family; Visit Provider Physician Assistant
DX: S83.281A Other tear of lateral meniscus, current injury, right knee, initial encounter (principal); X58.XXXA Exposure to other specified factors, initial encounter; G89.29 Other chronic pain; M17.11 Unilateral primary osteoarthritis, right knee; R93.6 Abnormal findings on diagnostic imaging of limbs; M94.261 Chondromalacia, right knee
CPT/HCPCS: 73721

== ENCOUNTER 2024-10-12 09:37 | Outpatient (CLI) | payer MEDICAID, SELFPAY ==
--- NOTE | 2024-10-12 10:00 | CT_ITS ---
WS: [id number] CT SINUSES TECHNIQUE: Noncontrast CT of the paranasal sinuses with coronal and sagittal reformatted images. CLINICAL INFORMATION: J32.4 - Chronic pansinusitis COMPARISON: None. DLP: 335.[address] scans at [facility] use at least one of these dose optimization techniques: automated exposure control; mA and/or kV adjustment per patient size (includes targeted exams where dose is matched to clinical indication); or iterative reconstruction. FINDINGS: LEFT RIGHT nasal septal deviation measuring 4 to 5 mm. Rightward directed spur. Ostiomeatal units are patent. Mild narrowing LEFT ostiomeatal unit. Paranasal sinuses are well aerated. Normal posterior nasopharynx. Normal parapharyngeal fat. Partially visualized mastoid air cells are well aerated. CT/CT sinus wo con* [id number] IMPRESSION: 1. LEFT to RIGHT nasal septal deviation measuring 4 to 5 mm. 2. Paranasal sinuses well aerated. 3. Mild narrowing of the LEFT greater than RIGHT ostiomeatal unit. 4. Partially visualized mastoid air cells are well aerated.
== END 2024-10-12 09:38 | disposition home or self-care (01) ==
PROVIDERS: PCP Nurse Practitioner Family; Visit Provider Nurse Practitioner Family
DX: J32.4 Chronic pansinusitis (principal); J34.2 Deviated nasal septum; J34.89 Other specified disorders of nose and nasal sinuses
CPT/HCPCS: 70486

== ENCOUNTER → 2024-10-18 14:49 | Outpatient (BNVA) | payer MEDICAID, SELFPAY | PROVIDERS: PCP Nurse Practitioner Family; Visit Provider Nurse Practitioner Family | DX: F41.9 Anxiety disorder, unspecified (principal); F32.9 Major depressive disorder, single episode, unspecified; Z13.6 Encounter for screening for cardiovascular disorders; I10 Essential (primary) hypertension; E55.9 Vitamin D deficiency, unspecified; D64.9 Anemia, unspecified | CPT/HCPCS: 80053; 80061; 81003; 82306; 83036; 84443; 85025 ==

== ENCOUNTER → 2024-11-08 11:54 | Outpatient (BNVA) | payer MEDICAID, SELFPAY | PROVIDERS: PCP Nurse Practitioner Family; Visit Provider Nurse Practitioner Family | DX: N39.0 Urinary tract infection, site not specified (principal) | CPT/HCPCS: 81003; 87086 ==

== ENCOUNTER 2024-11-17 08:31 | Day surgery (SDC) | payer MEDICAID, SELFPAY ==
[2024-11-17] VITALS (11 sets, daily range): BP systolic 110–137; BP diastolic 58–79; PULSE 63–101; RESP 16–20; TEMP 36.2–36.4; O2SAT 91–97; BMI 57.4
[2024-11-17] MEDS: sodium chloride 0.9% 1,000 ML 30 ML IV (09:23)
[2024-11-17] MEDS: acetaminophen 1,000 MG/100 ML PIGGYBACK 400 MG IV (09:25)
[2024-11-17] MEDS: ketorolac 30 mg/mL INJ IVP (09:26)
[2024-11-17] MEDS: scopolamine 1 mg PATCH 1 PATCH TRANSDERMA (09:27)
[2024-11-17] MEDS: famotidine 20 mg/2 mL INJ IVP (09:27)
[2024-11-17 09:42] LABS: OR HCG Qualitative Urine Negative (Negative)
--- NOTE | 2024-11-17 10:22 | W.PM.OPSUD ---
Surgery/Procedure H&P Update DATE OF PROCEDURE: November 17, 2024 DATE H&P PERFORMED: 10/19/24 H&P UPDATE INFORMATION: I have reviewed H&P completed within last 30 days, I have examined patient prior to procedure and No changes to prior documentation PREOP DIAGNOSIS: Right knee lateral meniscus tear, chondromalacia PRIMARY INDICATION FOR PROCEDURE: Right knee lateral meniscus tear, chondromalacia PLANNED PROCEDURE: Operation Date: 11/17/24 12:35 Proposed Procedures p RIGHT Knee DIAGNOSTIC & Arthroscopy w/ PARTIAL Lateral Menisectomy(Right) - DO andrew Waggoner Chondroplasty(Right) - Derik Rader DO
--- NOTE | 2024-11-17 11:57 | ANES.PREANE2 ---
Pre-Anesthetic Assessment Height/Weight: Height 1.63 m Weight 151.953 kg Temp Pulse Resp BP Pulse Ox O2 Del Method 97.2 F L 67 18 120/79 97 Room Air 11/17/24 09:12 11/17/24 09:12 11/17/24 09:12 11/17/24 09:27 11/17/24 09:12 11/17/24 09:15 Preop Diagnosis: Right knee lateral meniscus tear, chondromalacia Operation Date: 11/17/24 12:35 Proposed Procedures p RIGHT Knee DIAGNOSTIC & Arthroscopy w/ PARTIAL Lateral Menisectomy(Right) - Derik Rader DO s Chondroplasty(Right) - Derik Rader DO Familial anesthetic complications: None Was Beta Misbah taken within 24 hours: N/A Was Clonidine taken within 24 hours: N/A Last intake: Intake Last Liquid Date 11/16/24 Last Liquid Time 23:55 Last Solid Date 11/16/24 Last Solid Time 20:30 Social Tobacco and No alcohol Exam alert, oriented x 3, clear to auscultation bilaterally and regular rate & rhythm Airway Mallampati: Class III Dentition: full CV/HEM Hypertension GI Gastroesophageal Reflux Disease Metabolic Morbid Obesity Anesthetic Plan ASA status: 3 Anesthesia: General Risk of > 500 ml blood loss (7ml/kg in children): No Medications/Allergies Home Medications ?Medication ?Instructions ?Recorded ?Confirmed ?Last Taken ?Type cholecalciferol (vitamin D3) 25 25 mcg PO DAILY #30 caps 03/05/22 11/16/24 11/16/24 Rx mcg (1,000 unit) capsule magnesium oxide 400 mg PO BID 11/12/23 11/16/24 11/16/24 History sumatriptan succinate 25 mg tablet See Rx Instructions .Route 12/14/23 11/16/24 Unknown Rx .COMPLEX #9 ea mirabegron 25 mg tablet,extended See Rx Instructions .Route 02/05/24 11/16/24 Unknown Rx release 24 hr (Myrbetriq) .COMPLEX 30 days #90 tabs fexofenadine 180 mg tablet 180 mg PO DAILY 03/31/24 11/16/24 11/16/24 History ([facility] Allergy) azelastine 137 mcg (0.1 %) nasal 2 spray intranasal BID #30 mL 07/27/24 11/16/24 Unknown Rx spray montelukast 10 mg tablet 10 mg PO DAILY 90 days #90 tabs 10/05/24 11/16/24 11/15/24 Rx naproxen 500 mg tablet 500 mg PO BID PRN pain 30 days #60 10/18/24 11/16/24 Unknown Rx tabs cetirizine 10 mg tablet 10 mg PO DAILY 11/16/24 11/16/24 11/15/24 History losartan 25 mg tablet 25 mg PO DAILY 11/16/24 11/16/24 11/15/24 History omeprazole 40 mg capsule,delayed 40 mg PO DAILY 11/16/24 11/16/24 11/16/24 History release paroxetine HCl 40 mg tablet 40 mg PO DAILY 11/16/24 11/16/24 11/15/24 History vitamin with calcium 1 tab PO DAILY 11/16/24 11/16/24 11/16/24 History no.72-iron 27 mg-folic acid 1 mg tablet (M-Leonila Plus) Allergies Allergy/AdvReac Type Severity Reaction Status Date / Time escitalopram (From Lexapro) Allergy Severe ADR-Fatigue Verified 11/16/24 12:05 d guaifenesin (From Mucinex D) Allergy Severe ADR-Headach Verified 11/16/24 12:05 e loratadine (From Claritin-D) Allergy Severe ALGY-Bliste Verified 11/16/24 12:05 r pseudoephedrine (From Allergy Severe ALGY-Bliste Verified 11/16/24 12:05 Claritin-D) r Sulfa (Sulfonamide Allergy Severe ALGY-Hives Verified 11/16/24 12:05 Antibiotics) lisinopril Allergy Intermediate cough Verified 11/16/24 12:05 oxybutynin AdvReac heart Verified 11/16/24 12:05 palapations topiramate (From Topamax) AdvReac high bp Verified 11/16/24 12:05 propranolol Allergy Intermediate ALGY-Rash Uncoded 11/16/24 12:05 Current Medications Generic Name Dose Route Start Last Admin Trade Name Freq PRN Reason Stop Dose Admin Sodium Chloride 1,000 mls @ 30 mls/hr 11/17/24 08:45 11/17/24 09:23 Sodium Chloride 0.9% IV 11/18/24 08:44 30 mls/hr .Q24H MACIEJ Administration PFSH Anesthesia Medical History (Updated 11/07/24 @ 16:26 by GIORGIO Anne) Urinary tract infection UTI symptoms Chronic knee pain Lower respiratory infection Upper respiratory infection Headache Sore throat Nasal congestion Chronic sinusitis Encounter for allergy injection Osteoarthritis Right knee pain Multiple allergies Hyperhidrosis Excessive sweating Otitis externa Foreign body of ear, left Multiple drug allergies Hot flashes Vitamin deficiency Encounter for screening for cardiovascular disorders Cough Ingrown toenail Onychomycosis Internal derangement of knee involving lateral meniscus Obese Carpal tunnel syndrome Medication management Overactive bladder Bilateral otitis externa Nausea Acute otitis media, bilateral Acute bacterial sinusitis Morbid obesity with BMI of 60.0-69.9, adult Deviated nasal septum Yeast dermatitis Acute bacterial sinusitis Essential hypertension Anxiety and depression Sinus congestion Anemia Vitamin D deficiency Hypertension screen Medication management Environmental and seasonal allergies Menopausal symptom Sweating abnormality Elevated blood pressure reading Migraine headache Pharyngitis Bilateral otitis media Cholelithiasis FERMIN (generalized anxiety disorder) Surgical History S/P tympanic tube insertion Status post lateral meniscal repair Status post laparoscopic cholecystectomy (03/05/20) H/O hand surgery right hand History of tonsillectomy and adenoidectomy History of dilatation and curettage Family History Denies family history of Anesthesia complication Bleeding disorder Social History (Updated 10/19/24 @ 09:22 by Birdie Cash LPN) Smoking and tobacco/nicotine status: former use of tobacco/nicotine Second hand smoke exposure: No Alcohol intake: never Substance/Drug Use: never Adopted: No Caregiver/support person: Yes Lives independently: Yes Household members: spouse and family Housing: House Marital status: service: No Current occupational status: disabled Current occupational exposures/hazards: No Pets and animals: No Sexually active: Yes Do you think of yourself as: Straight/Heterosexual Current gender identity: Female Jeannette/Buddhist: Religion Special jeannette needs: No
[2024-11-17] MEDS: ceFAZolin 3,000 MG in sodium chloride 0.9% (plus) 100 ML 200 MG IV (13:16)
[2024-11-17] MEDS: lidocaine-epi 1% 20 mL INJ 40 ML INJECTION (13:54)
--- NOTE | 2024-11-17 14:58 | W.PM.BPON ---
Date of Procedure: [November 17, 2024] Surgeon: [Dr. Rader DO] Audio Visual Production Specialist(s): [Rodolfo Rader PA-C] Procedure(s) performed: [Right knee diagnostic and surgical arthroscopy lateral meniscectomy Extensive synovectomy Loose body removal] Findings of the procedure(s): [Right knee partial lateral meniscus tear, medial joint space grade III/IV chondromalacia, lateral joint compartment grade 3/4 chondromalacia and patellofemoral compartment grade III chondromalacia, loose body and extensive synovitis. procedure went well and as planned.] Estimated blood loss: [5 mL] Specimen(s) removed: [N/A] Post-operative diagnosis: [Right knee partial lateral meniscus tear, medial joint space grade III/IV chondromalacia, lateral joint compartment grade 3/4 chondromalacia and patellofemoral compartment grade III chondromalacia, loose body and extensive synovitis.]
--- NOTE | 2024-11-17 15:01 | PM.PACU ---
PACU note Narrative: Patient is a 39-year-old female that just underwent a right knee arthroscopy. Pt transferred to PACU in stable condition. Dressing is dry. pt is awake and alert. pt can wiggle toes and plantarflex and dorsiflex foot. pt able to perform straight leg raise, Femoral nerve intact. Distal pulses are palpable toes are warm and well-perfused. Cap refill is normal and under 2 seconds. Sensation to foot is intact. Pain is controlled. Exam: awake Disposition: discharged
--- NOTE | 2024-11-17 15:06 | P.OP_ITS ---
Operative Report Date of procedure: November 17, 2024 Surgeon: Derik Rader DO Bio Medical Technician: Rodolfo Rader PA-C: PA was necessary for assistance in this case with leg positioning, assistance with instrumentation of arthroscopy, assistance with wound closure and dressing application. Procedure: Preoperative diagnosis: Right knee lateral meniscus tear, chondromalacia Post-op diagnosis: Right knee partial lateral meniscus tear, medial joint space grade III/IV chondromalacia, lateral joint compartment grade 3/4 chondromalacia and patellofemoral compartment grade III chondromalacia, loose body and extensive synovitis. Procedure done: Right?knee?diagnostic and surgical arthroscopy partial lateral meniscectomy Right?knee?diagnostic and surgical arthroscopy with extensive synovectomy of the medial lateral and patellofemoral compartments Right?knee?diagnostic and surgical arthroscopy with loose body removal Right knee diagnostic and surgical arthroscopy with tricompartment chondroplasties (medial, lateral, patellofemoral compartments) Surgeon: Derik Rader DO Estimated blood loss: 5mL Tourniquet: No tourniquet was used IV fluids: 400mL Complications: None Findings: See operative report narrative Condition: stable Disposition: same day Brief History: Patient is a 39-year-old female with right?knee?pain.? Patient has failed conservative treatment who has been worked up for right??knee?pain in the outpatient setting. MRI findings consistent with tear of the lateral meniscus and chondromalacia. talked in the office about treatment options patient would like to proceed with a right?knee?diagnostic and surgical arthroscopy with partial lateral meniscectomy and chondroplasty.? Patient understand the ins and outs of the procedure the risk benefits complication alternatives to treatment options.? Understanding risk of surgery they agree to proceed with surgical intervention.? Patient understand this may not provide patient with complete symptomatic relief of? pain as patient does have some underlying arthritis.? Understanding this and patient agree to proceed with surgical intervention all questions answered. Procedure: Patient seen and evaluated in the preoperative holding area.? Consent was reviewed and signed with patient.? Correct extremity was then marked.? Patient seen evaluated Anesthesia Department once cleared for surgery patient was taken back to the operative suite.? Patient was transported onto the OR table in supine position.? All bony prominences well-padded patient was appropriate secured to the bed.? Once appropriately anesthetized a nonsterile tourniquet was applied to the right thigh.? The right lower extremity was then prepped and draped in?standard orthopedic fashion.? Final timeout performed.? Patient received appropriate preoperative antibiotics. Patient received local anesthetic of lidocaine with epinephrine into the joint as well as around the portal sites.? No tourniquet was inflated A?standard 2 portal vertical incision diagnostic and surgical arthroscopy of the right?knee?was performed in?standard fashion.? Small stab incision made in the inferolateral portal introduced trocar and arthroscope into the suprapatellar pouch.? Suprapatellar pouch was subsequently visualized and found to have significant synovitis but no loose bodies.? Patient had noticeable significant inflamed infrapatellar fat pad and thickening hypertrophic within the patellofemoral compartment.? ?The medial gutter was free of loose bodies I then introduced the arthroscope into the medial compartment.? Within the medial compartment I then established my inferior medial working portal utilizing spinal needle outside in technique.? Once established I then visualized our articular cartilage of the medial compartment with a valgus stress.? Patient was found to have grade 3-4 chondromalacia throughout the medial compartment.? Next I inspected the meniscus. The medial meniscus was found to be intact with an intact root. Patient was found to have a large loose body of delaminated cartilage that was floating around in the knee and was in the medial compartment I utilize a tissue grasper to grasp and remove this perform a loose body removal. Next, I then performed a synovectomy of the medial compartment.? Given patient's chondromalacia there was areas of unstable articular cartilage and I subsequently performed a chondroplasty with arthroscopic shaver and thermal wand.? This completed medial compartment work. Next a introduced the arthroscope to the intercondylar notch.? PCL and ACL were intact. patient had significant thickening of the infrapatellar fat pad spanning into the medial and lateral compartments.? I then performed an extensive synovectomy with the arthroscopic shaver of the patellofemoral medial and lateral compartments as well as the intercondylar notch. Advance the?scope?into the retrocruciate space and no loose bodies were found. Next I introduced the arthroscope into the lateral compartment the lateral compartment was found to have grade 3-4 chondromalacia.? Patient's previous root repair appeared to have the posterior aspect remained to be intact. Patient did have a large complex tear of the anterior horn to the body of the lateral meniscus this was unable to be repaired as result I subsequently performed a partial lateral meniscectomy with arthroscopic shaver and basket forceps to stable meniscal tissue and then the edges were annealed with thermal wand. This completed the partial lateral meniscectomy I then performed a chondroplasty of this compartment as well as unstable articular cartilage throughout the lateral compartment of the joint and subsequently did this utilizing a arthroscopic shaver and thermal wand to stable articular tissue. This completed my work of the lateral compartment and then performed a synovectomy of the lateral compartment.? Next of the arthroscope was placed into the lateral gutter and this was free of loose bodies.? Finally I reintroduced the arthroscope into the patellofemoral compartment.? The patellofemoral was found to have grade 3 chondromalacia of the patellofemoral compartment.? I then subsequently utilized a thermal wand and arthroscopic shaver to perform a patellofemoral compartment chondroplasty due to unstable articular cartilage in this area due to patient's extensive arthritis. This was performed a stable articular tissue. At this point I utilized arthroscopic shaver as well as thermal wand to perform extensive synovectomy of the patellofemoral compartment. This completed my work of the patellofemoral space.? I then switch my portal sites to the medial working portal.? Completed the rest of my synovectomy and the rest of my examination arthroscopy was normal. All fluid was suctioned from the joint.? ?All instruments were withdrawn.? Portal sites were closed with interrupted nylon suture.? portal sites were then covered with with Xeroform 4 x 4's ABD Curlex and Eitan wrap.? Patient was then subsequently awakened from anesthesia and taken to PACU in stable condition. Disposition: Patient taken to PACU in stable condition recovering well.? Will receive appropriate discharge structure as well as pain medication postoperatively as well as? DVT prophylaxis.we will have patient follow-up with us in the office in 2 weeks.? We will weightbearing as tolerated to the right lower extremity.? Patient understands and agrees with current plan.? All questions answered.
== END 2024-11-17 16:00 | disposition home or self-care (01) ==
PROVIDERS: Anesthesiology; PCP Nurse Practitioner Family; Visit Provider Student in an Organized Health Care Education/Training Program
PROC: (CPT 29870; principal; 2024-11-17 12:35)
PROC: (CPT 29876; 2024-11-17 12:35)
PROC: (CPT 29876; 2024-11-17 12:35)
PROC: (CPT 29876; 2024-11-17 12:35)
DX: S83.281A Other tear of lateral meniscus, current injury, right knee, initial encounter (principal); M94.261 Chondromalacia, right knee; M23.41 Loose body in knee, right knee; M65.961 Unspecified synovitis and tenosynovitis, right lower leg; Z88.2 Allergy status to sulfonamides; Z88.8 Allergy status to other drugs, medicaments and biological substances; Z87.891 Personal history of nicotine dependence
CPT/HCPCS: 29876; 29881; 81025; J0131; J0330; J0690; J1100; J1885; J2250; J2405; J2704; J3010; J3490; J7030; J9999

== ENCOUNTER → 2025-01-30 09:51 | Outpatient (BNVA) | payer MEDICAID, SELFPAY | PROVIDERS: PCP Nurse Practitioner Family; Visit Provider Nurse Practitioner Family | DX: I10 Essential (primary) hypertension (principal); N95.1 Menopausal and female climacteric states; R61 Generalized hyperhidrosis; R23.2 Flushing | CPT/HCPCS: 80053; 81003; 82672; 83001; 83002; 83036; 83516; 84439; 84443; 85025; 86376 ==

== ENCOUNTER → 2025-02-27 16:52 | Outpatient (BNVA) | payer MEDICAID, SELFPAY | PROVIDERS: PCP Nurse Practitioner Family; Visit Provider Nurse Practitioner Family | DX: R68.89 Other general symptoms and signs (principal) | CPT/HCPCS: 87400; 87426 ==

== ENCOUNTER → 2025-03-23 11:41 | Outpatient (BNVA) | payer MEDICAID, SELFPAY | PROVIDERS: PCP Nurse Practitioner Family; Visit Provider Nurse Practitioner Family | DX: R10.11 Right upper quadrant pain (principal) | CPT/HCPCS: 80053; 81003; 85025 ==

== ENCOUNTER → 2025-05-23 11:13 | Outpatient (BNVA) | payer MEDICAID, SELFPAY | PROVIDERS: PCP Nurse Practitioner Family; Visit Provider Nurse Practitioner Family | DX: M25.59 Pain in other specified joint (principal) | CPT/HCPCS: 82607; 82728; 82746; 83550; 85651; 86038; 86140; 86200; 86431 ==

== ENCOUNTER → 2025-06-20 09:29 | Outpatient (BNVA) | payer MEDICAID, SELFPAY | PROVIDERS: PCP Nurse Practitioner Family; Visit Provider Nurse Practitioner Family | DX: R51.9 Headache, unspecified (principal) | CPT/HCPCS: 82607; 82746; 84443 ==